=== PATIENT | female | born 2000 | race Caucasian/White ===

== ENCOUNTER 2019-04-23 23:24 | Emergency (ER) | payer BC, MEDICAID ==
[2019-04-23 23:44] VITALS: BP 119/64
[2019-04-23] MEDS ORDERED: Acetaminophen 500 MG Tab PO ONE (23:54)
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
[2019-04-24 01:30] LABS: CHLORIDE,CL 104 mmol/L (98-107); SODIUM,NA 139 mmol/L (136-145)
== END 2019-04-24 00:50 | disposition left against medical advice (07) ==
LOC: MW.ED 23:24
DX: O99.89 Other specified diseases and conditions complicating pregnancy, childbirth and the puerperium (principal); M54.5 Low back pain; M25.551 Pain in right hip; G89.29 Other chronic pain; Z3A.01 Less than 8 weeks gestation of pregnancy
CPT/HCPCS: 36415; 80053; 80305; 81003; 84702; 85025; 86140; 99284; A9270

== ENCOUNTER 2019-07-13 06:44 | Emergency (ER) | payer BC, MEDICAID ==
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
[2019-07-13 08:12] VITALS: BP 118/52
== END 2019-07-13 08:09 | disposition home or self-care (01) ==
LOC: MW.ED 06:44
DX: O99.89 Other specified diseases and conditions complicating pregnancy, childbirth and the puerperium (principal); R10.2 Pelvic and perineal pain; Z3A.19 19 weeks gestation of pregnancy
CPT/HCPCS: 80305-QW; 81003; 99284

== ENCOUNTER 2019-08-04 01:31 | Emergency (ER) | payer BC, MEDICAID ==
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
[2019-08-04] MEDS ORDERED: Acetaminophen/HYDROcodone 325-7.5 MG Tab PO ONE (02:17)
--- NOTE | 2019-08-04 03:51 | CR ---
INDICATION: Pelvic/hip/low back pain. 22 weeks . COMPARISON: None. FINDINGS/IMPRESSION: Postoperative changes in the bony pelvis including a transverse screw across the sacroiliac joints and upper sacrum, a surgical plate affixed by screws to the right superomedial acetabulum, and another surgical plate affixed by screws to the superior aspect of the right pubic bone. No acute fractures, bony erosions, or other acute osseous findings. Possible osseous structures projected over the mid lumbar spine, incompletely imaged. Dictated by Kilo Brown MD @ 08/04/2019 3:48:37 AM Dictated by: Kilo Brown MD @ 08/04/2019 03:48:53 (Electronically Signed)
[2019-08-04] MEDS ORDERED: Gabapentin 300 MG Cap PO ONE (03:53)
[2019-08-04 03:54] VITALS: BP 108/59; PULSE 84
== END 2019-08-04 04:29 | disposition home or self-care (01) ==
LOC: MW.OB 01:31 → MW.ED 01:31 → MW.OB 01:31 → EDSTATUS 01:33 → MW.ED 04:29
DX: O99.89 Other specified diseases and conditions complicating pregnancy, childbirth and the puerperium (principal); R10.2 Pelvic and perineal pain; Z3A.22 22 weeks gestation of pregnancy
CPT/HCPCS: 72170; 81003; 99284; A9270

== ENCOUNTER 2019-11-30 05:40 | Inpatient (IN) | payer BC, MEDICAID ==
[2019-11-30] MEDS ORDERED: Citric Acid/Sodium Citrate Solution 30 ML Cup PO ONE (05:51)
[2019-11-30] MEDS ORDERED: Sodium Chloride 0.9% 10 ML Syringe FLUSH PRN (05:51)
[2019-11-30] MEDS ORDERED: Sodium Chloride 0.9% 10 ML SDV IV PRN (05:51)
[2019-11-30] MEDS ORDERED: ceFAZolin 2 GM in Premix Bag 1 BAG IV ONE (05:51)
[2019-11-30] MEDS ORDERED: Sodium Chloride 0.9% 2.5 ML Syringe FLUSH PRN (05:51)
[2019-11-30] MEDS ORDERED: Oxytocin/0.9 % Sodium Chloride 30 UNIT/500 ML BAG IV SCH (06:00)
[2019-11-30] MEDS: Lactated Ringers 1,000 ML IV SCH ×4 (06:05→16:40)
[2019-11-30] MEDS ORDERED: Ondansetron 4 MG/2 ML SDV ONE ×2 (07:15→08:08)
[2019-11-30] MEDS ORDERED: Oxytocin 10 Units/1 ML SDV ONE ×2 (07:15)
[2019-11-30] MEDS ORDERED: Morphine PF 10 MG/10 ML SDV ONE (07:15)
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
[2019-11-30] MEDS ORDERED: Octyl 2-Cyanoacrylate 1 Tube ONE (07:48)
[2019-11-30] MEDS ORDERED: ceFAZolin 1 GM Vial ONE (08:05)
[2019-11-30] MEDS ORDERED: Sodium Chloride 0.9% 20 ML ONE (08:05)
[2019-11-30] MEDS ORDERED: Phenylephrine/Normal Saline 100 MCG/ML 10 ML Syringe ONE (08:06)
[2019-11-30] MEDS ORDERED: ePHEDrine 50 MG/ML SDV ONE (08:17)
[2019-11-30] MEDS ORDERED: Metoclopramide 10 MG/2 ML SDV ONE (08:20)
[2019-11-30] MEDS ORDERED: Nalbuphine 10 MG/1 ML Vial IVPUSH PRN (09:03)
[2019-11-30] MEDS ORDERED: fentaNYL 100 MCG/2 ML SDV IVPUSH PRN (09:03)
[2019-11-30] MEDS ORDERED: diphenhydrAMINE 50 MG/ML SDV IVPUSH PRN ×2 (09:03→09:07)
[2019-11-30] MEDS ORDERED: Acetaminophen/oxyCODONE 325-5 MG Tab PO PRN (09:03)
[2019-11-30] MEDS ORDERED: Ondansetron 4 MG/2 ML SDV IVPUSH PRN ×2 (09:03→09:07)
[2019-11-30] MEDS ORDERED: Naloxone 0.4 MG/ML Syringe IVPUSH PRN (09:03)
--- NOTE | 2019-11-30 09:03 | PCM.OPNOTE ---
- General Post-Op/Procedure Note Date of Surgery/Procedure: 11/30/19 Operative Procedure(s): primary low transverse Findings: Liveborn Female 8/9 weight 3840 grams, normal appearing tubes and ovaries , paratubal cysts noted on the left. Pre Op Diagnosis: 39 weeks prior pelvic surgery, cephalopelvic disproportion Post-Op Diagnosis: Same Anesthesia Technique: Spinal Primary Surgeon: Luisa Alicea Anesthesia Provider: [facility] [employer] Consultant: Niko Burrell Pathology: none Fluid Replacement, Intraop: 1,000 EBL in mLs: 500 Complications: None Known Condition: Good
[2019-11-30] MEDS ORDERED: Lanolin 100% Cream 7 GM Tube TOP PRN (09:07)
[2019-11-30] MEDS ORDERED: Bisacodyl 10 MG Supp RECTAL PRN (09:07)
[2019-11-30] MEDS ORDERED: Oxytocin 10 Units/1 ML SDV IM PRN (09:07)
[2019-11-30] MEDS ORDERED: Methylergonovine 0.2 MG/1 ML Amp IM PRN (09:07)
[2019-11-30] MEDS ORDERED: Misoprostol 200 MCG Tab RECTAL PRN (09:07)
[2019-11-30] MEDS ORDERED: Tranexamic Acid 1,000 MG in Sodium Chloride 0.9% 100 ML IV PRN (09:07)
[2019-11-30] MEDS ORDERED: Oxytocin/Lactated Ringers 30 UNIT/500 ML BAG IV SCH (09:15)
[2019-11-30] MEDS: Ketorolac 30 MG/ML SDV IVPUSH SCH ×3 (09:20→21:03)
--- NOTE | 2019-11-30 09:50 | PCM.POSTAN ---
POST ANESTHESIA ASSESSMENT - MENTAL STATUS Mental Status: Alert - RESPIRATORY Respiratory Status: Respiratory Rate WNL - CARDIOVASCULAR CV Status: Pulse Rate WNL - GASTROINTESTINAL GI Status: No Symptoms - POST OP HYDRATION Hydration Status: Adequate & Stable
[2019-11-30] MEDS: Acetaminophen 500 MG Tab PO PRN (13:50)
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
[2019-11-30] MEDS: Docusate Sodium 100 MG Cap PO SCH (21:03)
[2019-12-01] MEDS: Acetaminophen 500 MG Tab PO PRN ×2 (03:25→22:01)
[2019-12-01] MEDS: Ketorolac 30 MG/ML SDV IVPUSH SCH ×2 (03:26→09:39)
--- NOTE | 2019-12-01 05:48 | PCM48HPAN ---
Post Anesthesia Note - EVALUATION WITHIN 48HRS OF ANESTHETIC Vital Signs in Normal Range: Yes Patient Participated in Evaluation: Yes Respiratory Function Stable: Yes Airway Patent: Yes Cardiovascular Function Stable: Yes Hydration Status Stable: Yes Pain Control Satisfactory: Yes Nausea and Vomiting Control Satisfactory: Yes Mental Status Recovered: Yes Vital Signs: Last Vital Signs Temp 36.8 C 12/01/19 05:00 Pulse 113 H 12/01/19 05:00 Resp 19 12/01/19 05:00 BP 110/52 L 12/01/19 04:11 Pulse Ox 95 12/01/19 05:00
[2019-12-01] MEDS: oxyCODONE 5 MG Tab PO PRN ×3 (09:39→17:53)
[2019-12-01] MEDS: Docusate Sodium 100 MG Cap PO SCH ×2 (09:40→21:04)
[2019-12-01] MEDS: Prenatal Multivitamin and Multimineral with Iron Tab PO SCH (09:40)
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
[2019-12-01] MEDS: Ibuprofen 800 MG Tab PO PRN (15:52)
[2019-12-02] MEDS: oxyCODONE 5 MG Tab PO PRN (03:34)
[2019-12-02] MEDS: Ibuprofen 800 MG Tab PO PRN ×2 (03:35→12:58)
[2019-12-02 03:49] VITALS: BP 139/78; PULSE 100
[2019-12-02] MEDS: Docusate Sodium 100 MG Cap PO SCH (08:43)
[2019-12-02] MEDS: Acetaminophen 500 MG Tab PO PRN (08:44)
[2019-12-02] MEDS: Prenatal Multivitamin and Multimineral with Iron Tab PO SCH (08:44)
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
== END 2019-12-02 15:45 | disposition home or self-care (01) | DRG 540 ==
LOC: MW.OB 05:40
PROVIDERS: ADMIT Obstetrics & Gynecology; ATTEND Obstetrics & Gynecology
PROC: 10D00Z1 Extraction of Products of Conception, Low, Open Approach (ICD-10-PCS; principal; 2019-11-30)
DX: O33.9 Maternal care for disproportion, unspecified (principal); Z3A.39 39 weeks gestation of pregnancy; Z37.0 Single live birth; Z87.891 Personal history of nicotine dependence
CPT/HCPCS: 01961; 36415; 51702; 59025; 82803; 85014; 85018; 85027; 86592; 86850; 86900; 86901; A9270-GY; J0690; J1200; J1885; J2270; J2300; J2370; J2405; J2590; J2765; J7120

== ENCOUNTER 2020-03-05 20:21 | Emergency (ER) | payer BC, MEDICAID ==
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
--- NOTE | 2020-03-05 21:52 | CR ---
Right wrist: 3 views of the right wrist were obtained. Comparison: No prior wrist exam. Several small bony densities are identified off the ulnar styloid process which is felt compatible with old injury. Plate and screws are noted within the distal radius. Joint spaces are preserved. Nothing acute is seen. Impression: 1. Chronic findings as noted above. Nothing acute is seen on right wrist exam. Diagnostic code #2 This report was dictated in MDT
--- NOTE | 2020-03-05 21:53 | CR ---
Right hand: 3 views of the right hand were obtained. Plate and screws are noted within distal radius. Several old bony densities are noted off the ulnar styloid process. Joint spaces are preserved. No acute fracture, dislocation or other bony abnormality is appreciated. Impression: 1. Findings as noted above. 2. Nothing acute is identified on right hand exam. Diagnostic code #2 This report was dictated in MDT
[2020-03-05 22:05] VITALS: BP 129/68; PULSE 94
== END 2020-03-05 22:05 | disposition home or self-care (01) ==
LOC: MW.ED 20:21
DX: S69.91XA Unspecified injury of right wrist, hand and finger(s), initial encounter (principal); E66.9 Obesity, unspecified; Z68.39 Body mass index [BMI] 39.0-39.9, adult; F17.210 Nicotine dependence, cigarettes, uncomplicated; F31.9 Bipolar disorder, unspecified; Y04.0XXA Assault by unarmed brawl or fight, initial encounter
CPT/HCPCS: 73110-26-RT; 73110-RT; 73130-26-RT; 73130-RT; 99283

== ENCOUNTER 2020-04-27 19:25 | Emergency (ER) | payer BC, MEDICAID ==
[2020-04-27] MEDS ORDERED: Ibuprofen 600 MG Tab PO ONE (19:52)
[2020-04-27 20:11] VITALS: BP 120/74; PULSE 96
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
--- NOTE | 2020-04-27 21:28 | CR ---
Right ankle: 3 views the right ankle were obtained. Comparison: No previous ankle study. Ankle mortise is symmetric. No fracture, dislocation or other bony abnormality is seen. Impression: 1. No abnormality is appreciated on right ankle exam. Diagnostic code #1 Study was dictated in MDT
--- NOTE | 2020-04-27 21:30 | CR ---
Right foot: 2 views the right foot were obtained. Comparison: No previous foot exam. No discrete fracture or other bony abnormality is appreciated. Impression: 1. No abnormality is identified on 2 view right foot exam. Diagnostic code #1 Study was dictated in MDT
== END 2020-04-27 20:57 | disposition home or self-care (01) ==
LOC: MW.ED 19:25
DX: S90.31XA Contusion of right foot, initial encounter (principal); F31.9 Bipolar disorder, unspecified; F41.9 Anxiety disorder, unspecified; E66.9 Obesity, unspecified; Z79.899 Other long term (current) drug therapy; W20.8XXA Other cause of strike by thrown, projected or falling object, initial encounter
CPT/HCPCS: 73610; 73620; 99283; A9270; 99282

== ENCOUNTER 2020-07-13 18:40 | Emergency (ER) | payer MEDICAID, OTHER ==
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
--- NOTE | 2020-07-13 20:15 | CR ---
Chest: Portable view of the chest was obtained. Comparison: No prior chest imaging is available. Heart size and mediastinum are normal. Lungs are clear with no acute parenchymal change. Bony structures are grossly intact. Impression: 1. Nothing acute is seen on portable chest x-ray. Diagnostic code #1 Study was dictated in MDT
== END 2020-07-13 20:51 | disposition home or self-care (01) ==
LOC: MERGE 18:40 → MW.ED 18:40
DX: R19.7 Diarrhea, unspecified (principal); R10.9 Unspecified abdominal pain; R05 Cough; R06.02 Shortness of breath; E66.9 Obesity, unspecified; F17.210 Nicotine dependence, cigarettes, uncomplicated; Z68.37 Body mass index [BMI] 37.0-37.9, adult; Z20.828 Contact with and (suspected) exposure to other viral communicable diseases
CPT/HCPCS: 71045; 71045-26; 99282; 99284-25

== ENCOUNTER 2020-12-11 11:55 | Emergency (ER) | payer BC ==
[2020-12-11] MEDS ORDERED: Sulfamethoxazole/Trimethoprim 800-160 MG Tab PO ONE (12:15)
[2020-12-11] MEDS ORDERED: Bacitracin Oint 1 GM U/D Packet TOP ONE (12:15)
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
== END 2020-12-11 12:42 | disposition home or self-care (01) ==
LOC: MW.ED 11:55
DX: L03.113 Cellulitis of right upper limb (principal); E66.9 Obesity, unspecified; Z68.38 Body mass index [BMI] 38.0-38.9, adult; Z72.0 Tobacco use
CPT/HCPCS: 99283; A9270

== ENCOUNTER 2020-12-28 12:56 | Emergency (ER) | payer BC ==
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
== END 2020-12-28 14:40 | disposition home or self-care (01) ==
LOC: MW.ED 12:56
DX: Z02.79 Encounter for issue of other medical certificate (principal); E66.9 Obesity, unspecified; Z72.0 Tobacco use; Z68.41 Body mass index [BMI] 40.0-44.9, adult
CPT/HCPCS: 99282

== ENCOUNTER 2021-05-23 13:05 | Emergency (ER) | payer BC ==
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
[2021-05-23 14:32] LABS: BLOOD UREA NITROGEN,BUN 8 mg/dL (7.0-18.0); CARBON DIOXIDE,CO2 23.3 mmol/L (21.0-32.0); CHLORIDE,CL 106 mmol/L (98-107); GLUCOSE RANDOM 90 mg/dL (74-106); POTASSIUM,K 4.2 mmol/L (3.5-5.1); SODIUM,NA 141 mmol/L (136-145)
== END 2021-05-23 15:05 | disposition home or self-care (01) ==
LOC: MW.ED 13:05
DX: N92.0 Excessive and frequent menstruation with regular cycle (principal); E66.9 Obesity, unspecified; Z68.41 Body mass index [BMI] 40.0-44.9, adult
CPT/HCPCS: 36415; 80053; 81001; 84702; 85025; 86900; 86901; 99284

== ENCOUNTER 2021-07-21 12:33 | Emergency (ER) | payer BC ==
[2021-07-21] MEDS ORDERED: Ketorolac 15 MG/ML SDV IVPUSH STA (14:38)
[2021-07-21] MEDS ORDERED: Acetaminophen 500 MG Tab PO ONE (14:38)
[2021-07-21] MEDS ORDERED: Sodium Chloride 0.9% 1,000 ML IV ONE (14:38)
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
--- NOTE | 2021-07-21 15:27 | CR ---
INDICATION: Chest pain. SOB. COVID symptoms. TECHNIQUE: Portable AP image of the chest. COMPARISON: None. FINDINGS: Lungs clear. No pleural effusion or pneumothorax. Heart size and pulmonary vasculature within normal limits. No obvious rib fracture or other significant osseous abnormality. IMPRESSION: Negative chest. Dictated by David Boateng MD @ 07/21/2021 3:25:30 PM (Electronically Signed)
[2021-07-21 15:52] LABS: BLOOD UREA NITROGEN,BUN 11 mg/dL (7.0-18.0); CARBON DIOXIDE,CO2 25.1 mmol/L (21.0-32.0); CHLORIDE,CL 102 mmol/L (98-107); GLUCOSE RANDOM 103 mg/dL (74-106); POTASSIUM,K 3.6 mmol/L (3.5-5.1); SODIUM,NA 136 mmol/L (136-145)
== END 2021-07-21 16:15 | disposition home or self-care (01) ==
LOC: MW.ED 12:33
DX: H66.91 Otitis media, unspecified, right ear (principal); E66.9 Obesity, unspecified; Z68.41 Body mass index [BMI] 40.0-44.9, adult; Z72.0 Tobacco use; Z20.822 Contact with and (suspected) exposure to COVID-19
CPT/HCPCS: 36415; 71045; 80053; 85025; 87635; 87651; 87804; 96374; 99283; A9270; J1885; J7030; U0002

== ENCOUNTER 2021-11-21 12:52 | Emergency (ER) | payer BC ==
[2021-11-21] MEDS ORDERED: Sodium Chloride 0.9% 1,000 ML IV ONE (13:22)
[2021-11-21] MEDS ORDERED: Ondansetron 4 MG/2 ML SDV IVPUSH ONE (13:22)
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
[2021-11-21 14:15] LABS: BLOOD UREA NITROGEN,BUN 8 mg/dL (7.0-18.0); CHLORIDE,CL 97 mmol/L (98-107); GLUCOSE RANDOM 96 mg/dL (74-106); POTASSIUM,K 3.6 mmol/L (3.5-5.1); SODIUM,NA 137 mmol/L (136-145)
[2021-11-21 14:28] LABS: CORONAVIRUS COVID-19 NAA NEGATIVE (NEGATIVE); INFLUENZA A NAA POSITIVE (NEGATIVE); INFLUENZA B NAA NEGATIVE (NEGATIVE)
== END 2021-11-21 15:07 | disposition home or self-care (01) ==
LOC: MW.ED 12:52
DX: J10.83 Influenza due to other identified influenza virus with otitis media (principal); E66.9 Obesity, unspecified; Z68.41 Body mass index [BMI] 40.0-44.9, adult; Z72.0 Tobacco use; Z20.822 Contact with and (suspected) exposure to COVID-19
CPT/HCPCS: 0240U; 36415; 80048; 85025; 96374; 99284; J2405; J7030

== ENCOUNTER 2022-10-23 20:24 | Emergency (ER) | payer BC, MEDICAID ==
[2022-10-23] MEDS ORDERED: Ketorolac 30 MG/ML SDV IVPUSH ONE (23:50)
[2022-10-24] MEDS ORDERED: Iopamidol 755 MG/ML 500 ML Multipack Bottle IVPUSH ONE
[2022-10-24 01:20] LABS: CARBON DIOXIDE,CO2 25.1 mmol/L (21.0-32.0); POTASSIUM,K 3.5 mmol/L (3.5-5.1)
== END 2022-10-24 03:14 | disposition home or self-care (01) ==
LOC: MW.ED 20:24
DX: R10.33 Periumbilical pain (principal); E66.9 Obesity, unspecified; Z68.41 Body mass index [BMI] 40.0-44.9, adult
CPT/HCPCS: 36415; 74177; 80048; 81001; 81025; 85025; 96374; 99284; J1885; Q9967

== ENCOUNTER 2023-03-06 11:26 | Emergency (ER) | payer BC, MEDICAID ==
[2023-03-06] MEDS ORDERED: diphenhydrAMINE 50 MG/ML SDV IVPUSH ONE (11:52)
[2023-03-06] MEDS ORDERED: Metoclopramide 10 MG/2 ML SDV IVPUSH ONE (11:52)
[2023-03-06] MEDS ORDERED: Sodium Chloride 0.9% 1,000 ML IV ONE (11:52)
[2023-03-06] MEDS ORDERED: Ketorolac 30 MG/ML SDV IVPUSH ONE (11:52)
[2023-03-06 12:44] LABS: CARBON DIOXIDE,CO2 28.4 mmol/L (21.0-32.0); POTASSIUM,K 3.9 mmol/L (3.5-5.1)
[2023-03-06] MEDS ORDERED: Iopamidol 755 MG/ML 500 ML Multipack Bottle IVPUSH ONE (12:56)
== END 2023-03-06 14:13 | disposition home health service (06) ==
LOC: MW.ED 11:26
DX: J32.9 Chronic sinusitis, unspecified (principal); E66.9 Obesity, unspecified; Z68.39 Body mass index [BMI] 39.0-39.9, adult; Z86.711 Personal history of pulmonary embolism
CPT/HCPCS: 70450; 70487; 80053; 84703; 85025; 96361; 96374; 96375; 99284; J1200; J1885; J2765; J7030; Q9967